=== PATIENT | male | born 1975 | race Caucasian/White ===

== ENCOUNTER 2016-10-15 13:04 | Emergency (ER) | payer OTHER, SELFPAY ==
[2016-10-15] MEDS ORDERED: TORAdol 30 mg Injection IM ONE (13:40)
[2016-10-15] MEDS ORDERED: DILAUDID 2 MG INJECTION IM ONE (13:41)
[2016-10-15] MEDS ORDERED: Phenergan 25 MG INJ IM ONE (13:41)
[2016-10-15] MEDS ORDERED: TORAdol 30 mg Injection ONE (13:44)
[2016-10-15] MEDS ORDERED: Phenergan 25 MG INJ ONE (13:44)
[2016-10-15] MEDS ORDERED: DILAUDID 1 MG/ML INJECTION ONE (13:45)
--- NOTE | 2016-10-15 13:48 | ERPHSYRPT ---
- History of Present Illness Time Seen by Provider: 10/15/16 13:30 Source: patient Exam Limitations: clinical condition Patient Subjective Stated Complaint: LEFT HIP PAIN. - PT TRIPPED AND FELL AT WORK ON FRIDAY, THEN STEPPED IN A DEEP HOLE THE SAME DAY. Triage Nursing Assessment: ALERT X 3, RESP NONLABORED/EASY, PT CAN BEARLY TRASNFER FROM WHEELCHAIR TO BED. PT CAN NOT LIFT LEFT LEG UP NOR EXTEND LEFT LEG WITHOUT PAIN. Physician History: PATIENT FELL AT WORK 3 DAYS AGO, AFTER STEPPING INTO HOLE LANDING ONTO LEFT HIP , HAS SEVERE PAIN, UNABLE TO BEAR WEIGHT. DENIES HEAD, NECK OR BACK INJURY OR PAIN. Timing/Duration: day(s) Occured at: work Context: direct blow Quality: throbbing Hip Pain Location: hip (L) Severity of Pain-Max: severe Severity of Pain-Current: severe Modifying Factors: Improves With: movement Symptoms prior to fall: none Associated Symptoms: trouble walking Allergies/Adverse Reactions: tramadol Allergy (Verified 10/15/16 13:42) HIVES/RASH Home Medications: No Home Meds 1 [facility] UD 03/26/15 [History] Hx Tetanus, Diphtheria Vaccination/Date Given: Yes Hx Influenza Vaccination/Date Given: No Hx Pneumococcal Vaccination/Date Given: No Immunizations Up to Date: Yes - Review of Systems Constitutional: No Fever, No Chills Eyes: No Symptoms Ears, Nose, & Throat: No Symptoms Respiratory: No Symptoms, No Cough, No Dyspnea Cardiac: No Symptoms, No Chest Pain, No Edema, No Syncope Abdominal/Gastrointestinal: No Symptoms, No Abdominal Pain, No Nausea, No Vomiting, No Diarrhea Genitourinary Symptoms: No Symptoms, No Dysuria Musculoskeletal: Injury, No Back Pain, No Neck Pain Skin: No Rash Neurological: No Symptoms, No Dizziness, No Focal Weakness, No Sensory Changes Psychological: No Symptoms Endocrine: No Symptoms All Other Systems: Reviewed and Negative - Past Medical History Pertinent Past Medical History: Yes Neurological History: No Pertinent History ENT History: No Pertinent History Cardiac History: High Cholesterol Respiratory History: Asthma, COPD, Emphysema, Pneumonia Endocrine Medical History: No Pertinent History Musculoskeletal History: No Pertinent History GI Medical History: No Pertinent History, Other History: No Pertinent History Psycho-Social History: No Pertinent History Male Reproductive Disorders: No Pertinent History Other Medical History: alpha one blood disorder - Past Surgical History Past Surgical History: Yes Neuro Surgical History: No Pertinent History Cardiac: No Pertinent History Respiratory: No Pertinent History Gastrointestinal: Hernia Repair Genitourinary: No Pertinent History Musculoskeletal: Orthopedic Surgery Male Surgical History: No Pertinent History Other Surgical History: lt elbow, rt elbow,lt knee ,tonsils out lt finger,port placed - Social History Smoking Status: Never smoker Exposure to second hand smoke: No Drug Use: none Patient Lives Alone: No - Nursing Vital Signs Nursing Vital Signs: Initial Vital Signs Temperature 97.6 F Temperature Source Oral Pulse Rate 58 Respiratory Rate 18 Blood Pressure [Right Arm] 108/51 Pain Intensity 8 - Physical Exam General Appearance: no apparent distress, alert Eye Exam: PERRL/EOMI Ears, Nose, Throat Exam: normal ENT inspection, moist mucous membranes Neck Exam: normal inspection, non-tender, supple Respiratory Exam: normal breath sounds, lungs clear, No chest tenderness, No respiratory distress Cardiovascular Exam: regular rate/rhythm, No edema Gastrointestinal Exam: soft, No tenderness, No distention, No guarding Back Exam: normal inspection, normal range of motion, other (MARKED TENDERNESS LEFT SACRO ILIAC JOINT,), No vertebral tenderness Extremity Exam: limited range of motion (LEFT HIP WITH TENDERNESS OVER LEFT GROIN, NO GREATER TROCHANTER TENDERNESS, SWELLING OR ECCHYMOSIS, LEFT POPLITEAL AND PEDIS PULSES 2+) Peripheral Pulses: carotid (R): 2+, carotid (L): 2+, femoral (R): 2+, femoral (L ): 2+, dorsalis-pedis (R): 2+, dorsalis-pedis (L): 2+ Neurologic Exam: alert, oriented x 3, cooperative, mica inspector II-XII nml as tested, sensation nml, No motor deficits Skin Exam: normal color, warm, dry, No rash SpO2 Interpretation: normal SpO2: 94 Oxygen Delivery: Room Air - Radiology Exams Left Hip X-ray Interpretation: Discussed w/ radiologist, No Fracture (NO DISLOCATION) Pelvis X-ray Interpretation: Discussed w/ radiologist, No Fracture Ordered Tests: Active Orders 24 hr Category Date Time Status Crutches STAT Care 10/15/16 15:53 Active HIP UNI (2V) INCL PEL IF DONE Stat Exams 10/15/16 13:42 Completed Medication Summary Discontinued Medications Generic Name Dose Route Start Last Admin Trade Name Freq PRN Reason Stop Dose Admin Hydromorphone HCl 2 mg 10/15/16 13:41 10/15/16 13:48 Dilaudid 2 Mg Injection IM 10/15/16 13:42 2 mg STAT ONE Administration Hydromorphone HCl Confirm 10/15/16 13:45 Dilaudid 1 Mg/Ml Injection Administered 10/15/16 13:46 Dose 2 mg .ROUTE .STK-MED ONE Ketorolac Tromethamine 60 mg 10/15/16 13:40 10/15/16 13:48 Toradol 30 Mg Injection IM 10/15/16 13:41 60 mg STAT ONE Administration Ketorolac Tromethamine Confirm 10/15/16 13:44 Toradol 30 Mg Injection Administered 10/15/16 13:45 Dose 60 mg .ROUTE .STK-MED ONE Promethazine HCl 25 mg 10/15/16 13:41 10/15/16 13:48 Phenergan 25 Mg Inj IM 10/15/16 13:42 25 mg STAT ONE Administration Promethazine HCl Confirm 10/15/16 13:44 Phenergan 25 Mg Inj Administered 10/15/16 13:45 Dose 25 mg .ROUTE .STK-MED ONE - Progress Progress: improved Progress Note: 10/15/16 13:47 PATIENT ADMINISTERED TORADOL 60MG IM, DILAUDID 2MG/PHENERGAN 25MG IM Counseled pt/family regarding: diagnosis, need for follow-up, rad results - Departure Time of Disposition: 16:10 Departure Disposition: Home Clinical Impression: RIGHT HIP CONTUSION/STRAIN Condition: Stable Critical Care Time: No Additional Instructions: AMBULATE USING WALKER OR CRUTCHES NONWEIGHT BEARING LEFT LEG FOR 5 DAYS. ALTERNATE MOTRIN 600MG EVERY OTHER 4 HOURS WITH NORCO 10/325 NEEDED FOR PAIN. CONSULT YOUR FAMILY PHYSICIAN TOMORROW FOR EVALUATION. Prescriptions: Hydrocodone/APAP 10/325 mg [[place] 10/325 MG Tablet] 1 tab PO Q4H PRN PRN # 15 tablet PRN Reason: Pain Ibuprofen 600 mg PO Q6H PRN PRN #15 tablet PRN Reason: Pain
--- NOTE | 2016-10-15 15:15 | XRAY ---
Indication: Pain following fall. Comparison: None 2 views of the left hip obtained. No bony, articular, or soft tissue abnormalities.
[2016-10-15 15:56] VITALS: BP 108/51; PULSE 58
[2016-10-15 16:01] VITALS: O2SAT 94
[2016-10-17] MEDS ORDERED: BENADRYL 50 MG/ML IV STA (20:29)
[2016-10-17] MEDS ORDERED: Pepcid 20 MG VIAL IV ONE (20:30)
[2016-10-17] MEDS ORDERED: solu-MEDROL 125 MG IV ONE (20:31)
== END 2016-10-15 16:15 ==
LOC: ED 13:04
DX: S70.01XA Contusion of right hip, initial encounter (principal); S73.101A Unspecified sprain of right hip, initial encounter; W01.0XXA Fall on same level from slipping, tripping and stumbling without subsequent striking against object, initial encounter; Y92.89 Other specified places as the place of occurrence of the external cause; Y99.0 Civilian activity done for income or pay
CPT/HCPCS: 73502; 96372; 99283; J1170; J1885; J2550

== ENCOUNTER 2023-03-08 17:21 | Observation (INO) | payer OTHER ==
[2023-03-08] MEDS ORDERED: solu-MEDROL 125 MG, Sterile H2O 10 ml 2 ML IV ONE ×2 (17:30)
[2023-03-08] MEDS ORDERED: Ativan 2 MG/1 ML VIAL IV ONE (17:30)
[2023-03-08] MEDS ORDERED: MORPHINE SULFATE 4 MG INJ IV ONE (17:30)
[2023-03-08] MEDS ORDERED: PULMICORT 0.5 MG/2 ML RESPULES IH ONE ×2 (17:35→18:30)
[2023-03-08] MEDS ORDERED: TYLENOL EXTRA STRENGTH 500 MG PO STA (17:49)
--- NOTE | 2023-03-08 17:49 | ERPHSYRPT ---
- History of Present Illness Time Seen by Provider: 03/08/23 17:47 Source: patient, family Exam Limitations: no limitations Patient Subjective Stated Complaint: C/O SOB that started yesterday. States SOB just keeps becoming worse and now it hurts to breath. Triage Nursing Assessment: Patient brought back to ER by W/C. He is alert and oriented. SOB is noted. Skin tone normal. RT called to eval patient. Right lung clear. 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 Physician History: C/O SOB that started yesterday. States SOB just keeps becoming worse and now it hurts to breath. Timing/Duration: yesterday Activities at Onset: activity Severity of Dyspnea-Max: moderate Severity of Dyspnea-Current: moderate Possible Cause: frequent episodes Associated Symptoms: anxiety, painful breathing, No dizziness, No muscle spasms feet, No muscle spasms hands, No productive cough Allergies/Adverse Reactions: morphine Allergy (Verified 03/08/23 17:23) tramadol Allergy (Verified 03/08/23 17:23) HIVES/RASH Hx Tetanus, Diphtheria Vaccination/Date Given: Yes Hx Influenza Vaccination/Date Given: No Hx Pneumococcal Vaccination/Date Given: No Immunizations Up to Date: Yes Travel Risk - International Travel Have you traveled outside of the country in past 3 weeks: No - Coronavirus Screening Are you exhibiting any of the following symptoms?: Yes Symptoms: Shortness of Breath Close contact with a COVID-19 positive Pt in past 14-21 Days: No - Vaccine Status Have you recieved a Covid-19 vaccination: Yes [employer]: [employer] - Review of Systems Constitutional: Weakness, No Fever, No Chills Eyes: No Symptoms Ears, Nose, & Throat: No Symptoms Respiratory: Dyspnea, Dyspnea on Exertion (COLLIER), No Cough Cardiac: Orthopnea, PND, No Chest Pain, No Edema, No Syncope Abdominal/Gastrointestinal: No Abdominal Pain, No Nausea, No Vomiting, No Matilde rrhea Genitourinary Symptoms: No Dysuria Musculoskeletal: No Back Pain, No Neck Pain Skin: No Rash Neurological: No Dizziness, No Focal Weakness, No Sensory Changes Psychological: No Symptoms Endocrine: No Symptoms All Other Systems: Reviewed and Negative - Past Medical History Pertinent Past Medical History: Yes Neurological History: No Pertinent History ENT History: No Pertinent History Cardiac History: High Cholesterol Respiratory History: Asthma, COPD, Emphysema, Pneumonia Endocrine Medical History: No Pertinent History Musculoskeletal History: No Pertinent History GI Medical History: No Pertinent History, Other History: No Pertinent History Psycho-Social History: No Pertinent History Male Reproductive Disorders: No Pertinent History Other Medical History: alpha one blood disorder, 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 - Past Surgical History Past Surgical History: Yes Neuro Surgical History: No Pertinent History Cardiac: No Pertinent History Respiratory: No Pertinent History Gastrointestinal: Hernia Repair Genitourinary: No Pertinent History Musculoskeletal: Orthopedic Surgery Male Surgical History: No Pertinent History Other Surgical History: lt elbow, rt elbow,lt knee ,tonsils out lt finger,port placed - Social History Smoking Status: Never smoker Exposure to second hand smoke: No Drug Use: none Patient Lives Alone: No - Nursing Vital Signs Nursing Vital Signs: Initial Vital Signs Temperature 98.8 F 03/08/23 17:24 Pulse Rate 95 H 03/08/23 17:24 Respiratory Rate 20 03/08/23 17:24 Blood Pressure 125/77 03/08/23 17:24 O2 Sat by Pulse Oximetry 95 03/08/23 17:24 Pain Scale Pain Intensity 10 - Physical Exam General Appearance: no apparent distress, alert Eye Exam: PERRL/EOMI Neck Exam: normal inspection, supple Respiratory Exam: normal breath sounds, diminished breath sounds (right lower lung), crackles/rales, rhonchi Cardiovascular/Chest Exam: normal heart sounds, regular rate/rhythm Abdominal/Gastrointestinal Exam: soft, No tenderness, No distention, No mass Extremity Exam: non-tender, normal range of motion, normal inspection, no calf tenderness, no pedal edema Neurologic Exam: alert, oriented x 3, cooperative, bus washer II-XII nml as tested, sensation nml, No motor deficits Skin Exam: normal color, warm, No dry SpO2 Interpretation: normal SpO2: 95 O2 Delivery: Room Air - Course Nursing assessment & vital signs reviewed: Yes EKG Interpreted by Me: Sinus Rhythm - Radiology Exams Chest X-ray Interpretation: Reviewed by me, Infiltrates (right lower lobes) Ordered Tests: Active Orders 24 hr Category Date Time Status Primary Therapist STAT Care 03/08/23 17:31 Active EKG-ER Only STAT Care 03/08/23 17:30 Active Oxygen-ED Only Nasal Cannula 2 lpm Care 03/08/23 17:30 Active CHEST 1 VIEW (PORTABLE) Stat Exams 03/08/23 17:32 Taken ARTERIAL BLOOD GASES Stat Lab 03/08/23 17:30 Ordered CBC W DIFF Stat Lab 03/08/23 17:48 Completed CMP Stat Lab 03/08/23 17:48 Received D-DIMER QUANTITATIVE Stat Lab 03/08/23 17:48 Received MAGNESIUM Stat Lab 03/08/23 17:48 Received NT PRO BNPII Stat Lab 03/08/23 17:48 Received PROTIME WITH INR Stat Lab 03/08/23 17:48 Received TROPONIN Stat Lab 03/08/23 17:48 Received Medication Summary Generic Name Dose Route Start Last Admin Trade Name Angélica PRN Reason Stop Dose Admin Hydromorphone HCl 1 mg 03/08/23 18:11 Hydromorphone 1 Mg/1ml Inj IV 03/08/23 18:12 STAT ONE Sodium Chloride 1,000 mls @ 100 mls/hr 03/08/23 17:30 Sodium Chloride 0.9% 1000 Ml IV 04/07/23 17:29 .Q10H ROBE Ceftriaxone Sodium/Dextrose 1 g in 50 mls @ 100 mls/hr 03/08/23 18:01 Rocephin 1 Gm-D5w 50 Ml Bag IV 03/08/23 18:30 STAT STA Azithromycin 500 mg in 250 mls @ 250 mls/hr 03/08/23 18:01 Zithromax 500 Mg/ 250 Ml Nacl Premix IV 03/08/23 19:00 STAT STA Ketorolac Tromethamine 30 mg 03/08/23 18:11 Ketorolac Tromethamine 30 Mg/Ml Inj IV 03/08/23 18:12 STAT ONE Discontinued Medications Generic Name Dose Route Start Last Admin Trade Name Angélica PRN Reason Stop Dose Admin Acetaminophen 1,000 mg 03/08/23 17:49 Acetaminophen 500 Mg Tablet PO 03/08/23 17:50 STAT STA Budesonide Confirm 03/08/23 17:35 Budesonide 0.5 Mg/2 Ml Ampul.Neb. Administered 03/08/23 17:36 Dose 0.5 mg IH .STK-MED ONE Methylprednisolone Sodium 0 mg 03/08/23 17:30 Succinate 125 mg/ Sterile IV 03/08/23 17:31 Water 2 ml STAT ONE Ceftriaxone Sodium/Dextrose Confirm 03/08/23 18:05 Rocephin 1 Gm-D5w 50 Ml Bag Administered 03/08/23 18:06 Dose 1 g in 50 mls @ ud IV .STK-MED ONE Lorazepam 1 mg 03/08/23 17:30 Lorazepam 2 Mg/1 Ml 2 Mg Vial IV 03/08/23 17:31 STAT ONE Lorazepam Confirm 03/08/23 18:04 Lorazepam 2 Mg/1 Ml 2 Mg Vial Administered 03/08/23 18:05 Dose 2 mg .ROUTE .STK-MED ONE Methylprednisolone Sodium Succinate Confirm 03/08/23 18:05 Methylprednis Sod Succ 125 Mg/2 Ml Vial Administered 03/08/23 18:06 Dose 125 mg .ROUTE .STK-MED ONE Morphine Sulfate 4 mg 03/08/23 17:30 Morphine Sulfate 4 Mg/Ml Injection IV 03/08/23 17:31 STAT ONE Sterile Water Confirm 03/08/23 18:04 Water For Injection,Sterile 10 Ml Vial Administered 03/08/23 18:05 Dose 10 ml IJ .STK-MED ONE Lab/Rad Data: Laboratory Result Diagrams 03/08/23 17:48 Laboratory Results 03/08/23 Range/Units 17:48 WBC 6.9 (4.0-10.5) x10^3/uL RBC 4.98 (4.1-5.6) x10^6/uL Hgb 14.9 (12.5-18.0) g/dL Hct 45.6 (42-50) % MCV 91.6 (78-100) fL MCH 29.9 (26-32) pg MCHC 32.7 (32-36) g/dL RDW 12.0 (11.5-14.0) % Plt Count 194 (150-450) x10^3/uL MPV 9.9 (7.5-11.0) fL Gran % 71.8 H (36.0-66.0) % Immature Gran % (Auto) 0.9 H (0.00-0.4) % Nucleat RBC Rel Count 0.0 (0.00-0.1) % Eos # (Auto) 0.06 (0-0.5) x10^3/uL Immature Gran # (Auto) 0.06 H (0.00-0.03) x10^3u/L Absolute Lymphs (auto) 1.38 (1.0-4.6) x10^3/uL Absolute Monos (auto) 0.42 (0.0-1.3) x10^3/uL Absolute Nucleated RBC 0.00 (0.00-0.01) x10^3u/L Lymphocytes % 20.0 L (24.0-44.0) % Monocytes % 6.1 (0.0-12.0) % Eosinophils % 0.9 (0.00-5.0) % Basophils % 0.3 (0.0-0.4) % Absolute Granulocytes 4.97 (1.4-6.9) x10^3/uL Basophils # 0.02 (0-0.4) x10^3/uL - Progress Progress: re-examined, unchanged Air Movement: fair Blood Culture(s) Obtained: No Antibiotics given: Yes Discussed with Dr.: Other (Hospitalist, Dr Escalera) Will see patient in: hospital (observation) Medical Desision Making - Discussion of managment Care discussed with:: on-call "doc" Reviewed:: Test results, Need for additional workup Agreed on:: Treatment plan, need for follow-up, decision to admit, place in obs - Diagnostic Testing Diagnostic test were ordered, analyzed, and reviewed by me: Yes Radiological Interpretation: Reviewed by me - Risk of complications The pt has a mod risk of morbidity or mortality based on: Need for prescription drug management - Departure Departure Disposition: Observation Clinical Impression: Right lower lobe pneumonia Qualifiers: Pneumonia type: due to Pneumococcus Qualified Code(s): J13 - Pneumonia due to Streptococcus pneumoniae Condition: Fair Critical Care Time: Yes Critical Care Time(excluding separately billable procedures): Critical 30-74 mins Referrals: ANU OTT [Primary Care Provider] - Follow up/PCP as directed
[2023-03-08 17:52] LABS: Absolute Neutrophil Ct (ANC) 4.97 x10^3/uL (1.4-6.9); BASOPHIL % 0.3 % (0.0-0.4); Basophil (Absolute #) 0.02 x10^3/uL (0-0.4); Eosinophil % 0.9 % (0.00-5.0); Eosinophil (Absolute #) 0.06 x10^3/uL (0-0.5); Hematocrit 45.6 % (42-50); Hemoglobin 14.9 g/dL (12.5-18.0); IMMATURE GRAN # 0.06 x10^3u/L (0.00-0.03); IMMATURE GRAN % 0.9 % (0.00-0.4); Lymphocyte (Absolute #) 1.38 x10^3/uL (1.0-4.6); Mean Cell Volume 91.6 fL (78-100); Mean Corpuscular Hemoglobin 29.9 pg (26-32); Mean Corpuscular Hgb Concent. 32.7 g/dL (32-36); Mean Platelet Volume 9.9 fL (7.5-11.0); Monocyte (Absolute #) 0.42 x10^3/uL (0.0-1.3); Monocytes % 6.1 % (0.0-12.0); Neutrophil % 71.8 % (36.0-66.0); Platelet Count 194 x10^3/uL (150-450); Red Blood Count 4.98 x10^6/uL (4.1-5.6); White Blood Count 6.9 x10^3/uL (4.0-10.5)
[2023-03-08] MEDS ORDERED: Zithromax 500 MG/ 250 ML NaCl Premix 500 MG/250 ML IVPB IV STA (18:01)
[2023-03-08] MEDS ORDERED: ROCEPHIN 1 Gm-D5w 50 ml Bag** 1 G/50 ML IVPB IV STA (18:01)
[2023-03-08] MEDS ORDERED: Sterile H2O 10 ml IJ ONE ×2 (18:04→23:35)
[2023-03-08] MEDS ORDERED: Ativan 2 MG/1 ML VIAL ONE (18:04)
[2023-03-08] MEDS ORDERED: solu-MEDROL ONE ×2 (18:05→23:30)
[2023-03-08] MEDS ORDERED: ROCEPHIN 1 Gm-D5w 50 ml Bag** 1 G/50 ML IVPB IV ONE (18:05)
[2023-03-08] MEDS: Sodium Chloride 0.9% 1000 ML 1,000 ML IV SCH (18:06)
[2023-03-08] MEDS ORDERED: Hydromorphone 1 mg/ml Injection IV ONE ×3 (18:11→23:08)
[2023-03-08] MEDS ORDERED: TORAdol 30 mg Injection IV ONE (18:11)
[2023-03-08 18:17] LABS: D-DIMER QUANTITATIVE 0.29 mg/L (0.0-0.50); INR 0.9 (0.8-3.0); PROTIME 9.9 SECONDS (9.4-12.5)
[2023-03-08 18:19] LABS: ALBUMIN 4.2 g/dL (3.5-5.0); ALKALINE PHOSPHATASE 66 U/L (38-126); ANION GAP 13.8 MEQ/L (5-15); BLOOD UREA NITROGEN 9 mg/dL (9-20); CHLORIDE 100 mmol/L (98-107); Calcium 9.1 mg/dL (8.4-10.2); Carbon Dioxide 29 mmol/L (22-30); Creatinine 1 0.58 mg/dL (0.66-1.25); EST GLOMERULAR FILTRATION RATE > 60.0 ML/MIN; Glucose 194 mg/dL (74-106); MAGNESIUM 2.1 mg/dL (1.6-2.3); Potassium 4.7 mmol/L (3.5-5.1); SGOT/AST 45 U/L (17-59); SGPT/ALT 38 U/L (0-50); SODIUM 139 mmol/L (137-145); TROPONIN < 0.012 ng/mL (0.000-0.034); Total Protein 7.7 g/dL (6.3-8.2)
[2023-03-08] MEDS ORDERED: Hydromorphone 1 mg/ml Injection ONE ×2 (18:23→19:30)
[2023-03-08] MEDS ORDERED: TORAdol 30 mg Injection ONE (18:23)
[2023-03-08] MEDS ORDERED: Zithromax 500 MG/ 250 ML NaCl Premix 500 MG/250 ML IVPB IV ONE (18:41)
[2023-03-08 18:51] LABS: A-aADO2 66; ABG HEMOGLOBIN 15.3; ABG POTASSIUM 3.6 (3.5-5.1); ABG SITE RIGHT RADIAL; ALLEN TEST OK? YES; ARTERIAL BLD GAS O2 SATURATION 97.9 % (95-100); ARTERIAL BLOOD GAS BASE EXCESS 3.3 (-2.0-2.0); ARTERIAL BLOOD GAS FIO2 28 %; ARTERIAL BLOOD GAS PCO2 41 mmHg (35-45); ARTERIAL BLOOD GAS PO2 82 mmHg (75-100); ARTERIAL BLOOD GAS pH 7.44 (7.35-7.45); CARBOXYHEMOGLOBIN 1.8 % THgb (0.0-6.9); HCO3- 27.8 (22-28); HGB O2 SAT 95.2 g/dF (94-100); Methhemoglobin 1.1 % (1.4-1.5); paO2 pAO1 0.55
--- NOTE | 2023-03-08 20:57 | XRAY ---
Indication: Short of breath. Comparison: None Portable apical lordotic chest demonstrates mild right base infiltrate versus atelectasis. Remaining heart, left lung, and bony thorax unremarkable.
[2023-03-08] MEDS: DUONEB 0.5-3 MG/3 ml Neb IH SCH (23:19)
[2023-03-08] MEDS: Pepcid 20 MG VIAL IV SCH (23:32)
--- NOTE | 2023-03-08 23:56 | PCM.HP ---
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 Reports allergy to Sawdust requiring thoracic surgery and recurrent pneumonia since then. He reorts increasing right sided chest pain and SOB. Pain worse with coughing, not worse with deep breath. No sputum production or fever. Labs significant for WBC 6.9, plt 194, d-dimer 0.29, trop negative, BNP <20. ABG 7.44/. CXR w/ right basilar infiltrate. In the ED he received Tylenol, Budesonide, Dilaudid, Toradol Ativan, Solumedrol, Ceftriaxone and Azithromycin - Review of Systems Cardiac: Chest Pain All Other Systems: Reviewed and Negative Medications & Allergies Home Medications: Home Medication List Albuterol/Ipratropium 3ml Neb* [DUONEB 0.5-3 MG/3 ml Neb] 1 inhaler IH Q4- 6HPRN PRN 03/08/23 [History Confirmed 03/08/23] Bumetanide 1 mg [Bumex 1 mg] 2 mg PO DAILY 03/08/23 [History Confirmed 03/08/23] Empagliflozin [Jardiance] 25 mg PO DAILY 03/08/23 [History Confirmed 03/08/23] Potassium Chloride 40 meq PO BID 03/08/23 [History Confirmed 03/08/23] Semaglutide [Ozempic] 0.25 mg SQ WEEKLY 03/08/23 [History Confirmed 03/08/23] Allergies/Adverse Reactions: Allergies Allergy/AdvReac Type Severity Reaction Status Date / Time morphine Allergy Verified 03/08/23 17:23 tramadol Allergy Verified 03/08/23 17:23 - Past Medical History Past Medical History: Yes Neurological History: No Pertinent History ENT History: No Pertinent History Cardiac History: High Cholesterol Respiratory History: Asthma, COPD, Emphysema, Pneumonia Endocrine Medical History: Diabetes Type II Musculoskelatal History: Arthritis, Other GI Medical History: No Pertinent History, Other History: No Pertinent History Pyscho-Social History: Anxiety Male Reproductive Disorders: No Pertinent History Comment: alpha one blood disorder, 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 - Past Surgical History Past Surgical History: Yes Neuro Surgical History: No Pertinent History Cardiac History: No Pertinent History Respiratory Surgery: Other GI Surgical History: Hernia Repair Genitourinary Surgical Hx: No Pertinent History Musculskeletal Surgical Hx: Orthopedic Surgery Male Surgical History: No Pertinent History Other Surgical History: lt elbow, rt elbow,lt knee ,tonsils out lt finger,port placed, port removed - Social History Smoking Status: Never smoker Exposure to second hand smoke: No Alcohol: None, Rarely Drug Use: none - Physical Exam Vital Signs: Vital Signs - 24 hr Temp Pulse Resp BP BP Pulse Ox 03/08/23 23:19 86 24 96 03/08/23 22:09 97.8 F 90 24 159/84 94 L 03/08/23 21:00 91 H 24 132/77 94 L 03/08/23 20:30 92 H 20 142/84 96 03/08/23 20:00 88 17 153/97 03/08/23 19:30 90 18 168/89 94 L 03/08/23 19:00 93 H 26 H 151/98 03/08/23 18:30 89 19 138/84 03/08/23 18:22 90 20 138/84 95 03/08/23 18:14 95 03/08/23 17:38 90 22 95 03/08/23 17:24 98.8 F 95 H 20 125/77 95 Results - Labs Lab/Micro Results: Lab Results-Last 24 Hours 03/08/23 03/08/23 03/08/23 Range/Units 17:48 17:48 17:48 WBC 6.9 (4.0-10.5) x10^3/uL RBC 4.98 (4.1-5.6) x10^6/uL Hgb 14.9 (12.5-18.0) g/dL Hct 45.6 (42-50) % MCV 91.6 (78-100) fL MCH 29.9 (26-32) pg MCHC 32.7 (32-36) g/dL RDW 12.0 (11.5-14.0) % Plt Count 194 (150-450) x10^3/uL MPV 9.9 (7.5-11.0) fL Gran % 71.8 H (36.0-66.0) % Immature Gran % (Auto) 0.9 H (0.00-0.4) % Nucleat RBC Rel Count 0.0 (0.00-0.1) % Eos # (Auto) 0.06 (0-0.5) x10^3/uL Immature Gran # (Auto) 0.06 H (0.00-0.03) x10^3u/L Absolute Lymphs (auto) 1.38 (1.0-4.6) x10^3/uL Absolute Monos (auto) 0.42 (0.0-1.3) x10^3/uL Absolute Nucleated RBC 0.00 (0.00-0.01) x10^3u/L Lymphocytes % 20.0 L (24.0-44.0) % Monocytes % 6.1 (0.0-12.0) % Eosinophils % 0.9 (0.00-5.0) % Basophils % 0.3 (0.0-0.4) % Absolute Granulocytes 4.97 (1.4-6.9) x10^3/uL Basophils # 0.02 (0-0.4) x10^3/uL PT 9.9 (9.4-12.5) SECONDS INR 0.90 (0.8-3.0) D-Dimer 0.29 (0.0-0.50) mg/L Puncture Site pCO2 (35-45) mmHg pO2 (75-100) mmHg Base Excess (-2.0-2.0) O2 Saturation (94-100) g/dF ABG pH (7.35-7.45) ABG HCO3 (22-28) ABG O2 Sat (Measured) (95-100) % Олег Test A-a Gradient a/A Ratio Hemoglobin Carboxyhemoglobin (0.0-6.9) % THgb Methemoglobin (1.4-1.5) % Temperature C POC O2 Flow Rate % Sodium 139 (137-145) mmol/L Potassium 4.7 (3.5-5.1) mmol/L Chloride 100 (98-107) mmol/L Carbon Dioxide 29 (22-30) mmol/L Anion Gap 13.8 (5-15) MEQ/L BUN 9 (9-20) mg/dL Creatinine 0.58 L (0.66-1.25) mg/dL Estimated GFR > 60.0 ML/MIN Glucose 194 H (74-106) mg/dL Calcium 9.1 (8.4-10.2) mg/dL Magnesium 2.1 (1.6-2.3) mg/dL Total Bilirubin 0.70 (0.2-1.3) mg/dL AST 45 (17-59) U/L ALT 38 (0-50) U/L Alkaline Phosphatase 66 (38-126) U/L Troponin I < 0.012 (0.000-0.034) ng/mL NT-Pro-B Natriuret Pep (<300) pg/mL Serum Total Protein 7.7 (6.3-8.2) g/dL Albumin 4.2 (3.5-5.0) g/dL 03/08/23 03/08/23 Range/Units 17:48 18:47 WBC (4.0-10.5) x10^3/uL RBC (4.1-5.6) x10^6/uL Hgb (12.5-18.0) g/dL Hct (42-50) % MCV (78-100) fL MCH (26-32) pg MCHC (32-36) g/dL RDW (11.5-14.0) % Plt Count (150-450) x10^3/uL MPV (7.5-11.0) fL Gran % (36.0-66.0) % Immature Gran % (Auto) (0.00-0.4) % Nucleat RBC Rel Count (0.00-0.1) % Eos # (Auto) (0-0.5) x10^3/uL Immature Gran # (Auto) (0.00-0.03) x10^3u/L Absolute Lymphs (auto) (1.0-4.6) x10^3/uL Absolute Monos (auto) (0.0-1.3) x10^3/uL Absolute Nucleated RBC (0.00-0.01) x10^3u/L Lymphocytes % (24.0-44.0) % Monocytes % (0.0-12.0) % Eosinophils % (0.00-5.0) % Basophils % (0.0-0.4) % Absolute Granulocytes (1.4-6.9) x10^3/uL Basophils # (0-0.4) x10^3/uL PT (9.4-12.5) SECONDS INR (0.8-3.0) D-Dimer (0.0-0.50) mg/L Puncture Site RIGHT RADIAL pCO2 41 (35-45) mmHg pO2 82 (75-100) mmHg Base Excess 3.3 H (-2.0-2.0) O2 Saturation 95.2 (94-100) g/dF ABG pH 7.44 (7.35-7.45) ABG HCO3 27.8 (22-28) ABG O2 Sat (Measured) 97.9 (95-100) % Олег Test YES A-a Gradient 66 a/A Ratio 0.55 Hemoglobin 15.3 Carboxyhemoglobin 1.8 (0.0-6.9) % THgb Methemoglobin 1.1 L (1.4-1.5) % Temperature 37.0 C POC O2 Flow Rate 28 % Sodium (137-145) mmol/L Potassium 3.6 (3.5-5.1) mmol/L Chloride (98-107) mmol/L Carbon Dioxide (22-30) mmol/L Anion Gap (5-15) MEQ/L BUN (9-20) mg/dL Creatinine (0.66-1.25) mg/dL Estimated GFR ML/MIN Glucose (74-106) mg/dL Calcium (8.4-10.2) mg/dL Magnesium (1.6-2.3) mg/dL Total Bilirubin (0.2-1.3) mg/dL AST (17-59) U/L ALT (0-50) U/L Alkaline Phosphatase (38-126) U/L Troponin I (0.000-0.034) ng/mL NT-Pro-B Natriuret Pep < 20.0 (<300) pg/mL Serum Total Protein (6.3-8.2) g/dL Albumin (3.5-5.0) g/dL - Radiology Impressions Radiology Exams & Impressions: Radiology Procedures Category Date Time Status CHEST 1 VIEW (PORTABLE) Stat Exams 03/08/23 17:32 Completed - Other Procedures and Tests Respiratory Therapy 03/08/23 18:31 Respiratory Therapy Assessment DAILY 03/08/23 22:17 Oxygen Nasal Cannula 2 lpm 03/08/23 23:47 BiPap/CPAP ROUTINE Assessment/Plan (1) Right lower lobe pneumonia Current Visit: Yes Status: Acute Qualifiers: Pneumonia type: due to Pneumococcus Qualified Code(s): J13 - Pneumonia due to Streptococcus pneumoniae Assessment & Plan: PHYSICAL EXAM: Gen: Alert and oriented, NAD Eyes: PERRL ENT: MMM CV: S1S2 Pulm: Scatter wheezing, diminished Abd: Soft/nt/nd/obese Extrem: No c/c/e Skin: Dry and intact ASSESSMENT #Pneumonia #Right sided chest pain, likely pleurisy #COPD exacerbation #Morbid obesity #CASSIA on NIV #DM PLAN: -Ceftriaxone, Azithromycin -Toradol schedule x4 doses and PRN Dilaudid -CT chest if persistent chest pain -Solumedrol -Duonebs -Continue NIV -SSI PPX: Lovenox Entire encounter performed via telemdicine Patient requested 2mg Dilaudid PRN and addition of anxiety medication. Explained in setting of comorbidities he is at high risk for complications at higher doses of opioids and or mixing benzos with opioids. Code(s): J18.9 - PNEUMONIA, UNSPECIFIED ORGANISM Telemedicine Encounter - Telemedicine Encounter Telemedicine Encounter: The entirety of this encounter was performed via Telemedicine"
[2023-03-09] MEDS ORDERED: solu-MEDROL 60 MG, Sterile H2O 10 ml 2 ML IV SCH ×2
[2023-03-09] MEDS: TORAdol 30 mg Injection IV SCH ×4 (00:37→18:09)
[2023-03-09] MEDS: Hydromorphone 1 mg/ml Injection IV PRN ×6 (03:02→23:56)
[2023-03-09] MEDS: DUONEB 0.5-3 MG/3 ml Neb IH SCH ×7 (03:20→22:33)
[2023-03-09] MEDS: Sodium Chloride 0.9% 1000 ML 1,000 ML IV SCH (05:36)
[2023-03-09 07:03] LABS: Hematocrit 51.2 % (42-50); Mean Cell Volume 94.3 fL (78-100); Mean Corpuscular Hemoglobin 29.5 pg (26-32); Mean Corpuscular Hgb Concent. 31.3 g/dL (32-36); Platelet Count 148 x10^3/uL (150-450); Red Blood Count 5.43 x10^6/uL (4.1-5.6); Red Cell Distribution Width 11.9 % (11.5-14.0); White Blood Count 8.8 x10^3/uL (4.0-10.5)
[2023-03-09 07:16] LABS: ANION GAP 18.1 MEQ/L (5-15); BLOOD UREA NITROGEN 12 mg/dL (9-20); CHLORIDE 102 mmol/L (98-107); Calcium 9.3 mg/dL (8.4-10.2); Carbon Dioxide 21 mmol/L (22-30); Creatinine 1 0.55 mg/dL (0.66-1.25); EST GLOMERULAR FILTRATION RATE > 60.0 ML/MIN; Glucose 287 mg/dL (74-106); Potassium 4.4 mmol/L (3.5-5.1); SODIUM 137 mmol/L (137-145)
[2023-03-09] MEDS ORDERED: SEMAGLUTIDE 0.25 MG/0.4 ML SQ SCH (08:30)
[2023-03-09] MEDS ORDERED: MEDICATION INTERVENTION MC SCH (08:30)
[2023-03-09] MEDS: ROCEPHIN 1 Gm-D5w 50 ml Bag** 1 G/50 ML IVPB IV SCH (08:33)
[2023-03-09] MEDS: HUMALOG SQ SCH ×4 (08:40→21:40)
[2023-03-09] MEDS: Zithromax 500 MG/ 250 ML NaCl Premix 500 MG/250 ML IVPB IV SCH (08:57)
[2023-03-09] MEDS ORDERED: NON-FORMULARY ITEM (Potassium Chloride [Potassium Chloride] 20 MEQ Tablet.Er) PO SCH (10:00)
[2023-03-09] MEDS: Klor Con PO SCH ×2 (11:20→21:36)
[2023-03-09] MEDS: BUMEX 1 MG PO SCH (11:20)
[2023-03-09] MEDS: JARDIANCE PO SCH (11:20)
[2023-03-09] MEDS: solu-MEDROL 60 MG, Sterile H2O 10 ml 2 ML IV SCH ×4 (11:23→21:38)
[2023-03-09] MEDS: Pepcid 20 MG VIAL IV SCH ×2 (11:25→21:37)
[2023-03-09] MEDS: ENOXAPARIN SODIUM SQ SCH (11:49)
--- NOTE | 2023-03-09 12:10 | PCM.NOTE ---
Date and Time: 03/09/23 1205 Subjective Assessment: Still reports persistent pleurisy. No new dyspnea or cough symptoms. Does not report fever and hemoptysis. The patient was seen and examined via telemedicine. The entirety of this encounter was performed via telemedicine. The patient consented to this telemedicine encounter. - Review of Systems Constitutional: Fatigue Eyes: No Symptoms Ears, Nose, & Throat: No Symptoms Respiratory: Other (pleurisy) Cardiac: No Symptoms Abdominal/Gastrointestinal: No Symptoms Genitourinary Symptoms: No Symptoms Musculoskeletal: No Symptoms Skin: No Symptoms Neurological: No Symptoms Psychological: No Symptoms Endocrine: No Symptoms Hematologic/Lymphatic: No Symptoms Immunological/Allergic: No Symptoms Objective Exam General Appearance: no apparent distress Neurologic Exam: alert, oriented x 3, cooperative, home hospice rn II-XII nml as tested, normal mood/affect, nml cerebellar function Skin Exam: normal color Eye Exam: PERRL, EOMI, eyes nml inspection Ears, Nose, Throat Exam: normal ENT inspection Neck Exam: normal inspection, non-tender, supple, full range of motion Respiratory Exam: normal breath sounds, lungs clear Cardiovascular Exam: regular rate/rhythm, normal heart sounds Gastrointestinal/Abdomen Exam: soft, normal bowel sounds Extremity Exam: normal inspection, normal range of motion Back Exam: normal range of motion OBJECTIVE DATA Vital Signs: Vital Signs - 24 hr Temp Pulse Resp BP BP Pulse Ox 03/09/23 12:00 96.5 F 82 20 150/78 97 03/09/23 11:42 82 18 95 03/09/23 07:09 96.1 F 75 18 153/76 93 L 03/09/23 07:00 91 H 16 92 L 03/09/23 04:27 96.3 F 80 20 136/76 93 L 03/09/23 04:00 98.8 F 86 22 138/84 90 L 03/09/23 03:21 86 22 90 L 03/08/23 23:19 86 24 96 03/08/23 22:09 97.8 F 90 24 159/84 94 L 03/08/23 21:00 91 H 24 132/77 94 L 03/08/23 20:30 92 H 20 142/84 96 03/08/23 20:00 88 17 153/97 03/08/23 19:30 90 18 168/89 94 L 03/08/23 19:00 93 H 26 H 151/98 03/08/23 18:30 89 19 138/84 03/08/23 18:22 90 20 138/84 95 03/08/23 18:14 95 03/08/23 17:38 90 22 95 03/08/23 17:24 98.8 F 95 H 20 125/77 95 Pain Assessment - Last Documented Pain Intensity 9 Pain Scale Used 0-10 Pain Scale Intake and Output: Intake & Output 03/07/23 03/08/23 03/09/23 03/10/23 11:59 11:59 11:59 11:59 Intake Total 2606 Output Total 1300 Balance 1306 Weight 148.9 kg Lab Results: Lab Results-Last 24 Hours 03/08/23 03/08/23 03/08/23 Range/Units 17:48 17:48 17:48 WBC 6.9 (4.0-10.5) x10^3/uL RBC 4.98 (4.1-5.6) x10^6/uL Hgb 14.9 (12.5-18.0) g/dL Hct 45.6 (42-50) % MCV 91.6 (78-100) fL MCH 29.9 (26-32) pg MCHC 32.7 (32-36) g/dL RDW 12.0 (11.5-14.0) % Plt Count 194 (150-450) x10^3/uL MPV 9.9 (7.5-11.0) fL Gran % 71.8 H (36.0-66.0) % Immature Gran % (Auto) 0.9 H (0.00-0.4) % Nucleat RBC Rel Count 0.0 (0.00-0.1) % Eos # (Auto) 0.06 (0-0.5) x10^3/uL Immature Gran # (Auto) 0.06 H (0.00-0.03) x10^3u/L Absolute Lymphs (auto) 1.38 (1.0-4.6) x10^3/uL Absolute Monos (auto) 0.42 (0.0-1.3) x10^3/uL Absolute Nucleated RBC 0.00 (0.00-0.01) x10^3u/L Lymphocytes % 20.0 L (24.0-44.0) % Monocytes % 6.1 (0.0-12.0) % Eosinophils % 0.9 (0.00-5.0) % Basophils % 0.3 (0.0-0.4) % Absolute Granulocytes 4.97 (1.4-6.9) x10^3/uL Basophils # 0.02 (0-0.4) x10^3/uL PT 9.9 (9.4-12.5) SECONDS INR 0.90 (0.8-3.0) D-Dimer 0.29 (0.0-0.50) mg/L Puncture Site pCO2 (35-45) mmHg pO2 (75-100) mmHg Base Excess (-2.0-2.0) O2 Saturation (94-100) g/dF ABG pH (7.35-7.45) ABG HCO3 (22-28) ABG O2 Sat (Measured) (95-100) % Олег Test A-a Gradient a/A Ratio Hemoglobin Carboxyhemoglobin (0.0-6.9) % THgb Methemoglobin (1.4-1.5) % Temperature C POC O2 Flow Rate % Sodium 139 (137-145) mmol/L Potassium 4.7 (3.5-5.1) mmol/L Chloride 100 (98-107) mmol/L Carbon Dioxide 29 (22-30) mmol/L Anion Gap 13.8 (5-15) MEQ/L BUN 9 (9-20) mg/dL Creatinine 0.58 L (0.66-1.25) mg/dL Estimated GFR > 60.0 ML/MIN Glucose 194 H (74-106) mg/dL POC Glucometer (74 to 106) mg/dL Hemoglobin A1c (4.5-6.0) % Calcium 9.1 (8.4-10.2) mg/dL Magnesium 2.1 (1.6-2.3) mg/dL Total Bilirubin 0.70 (0.2-1.3) mg/dL AST 45 (17-59) U/L ALT 38 (0-50) U/L Alkaline Phosphatase 66 (38-126) U/L Troponin I < 0.012 (0.000-0.034) ng/mL NT-Pro-B Natriuret Pep (<300) pg/mL Serum Total Protein 7.7 (6.3-8.2) g/dL Albumin 4.2 (3.5-5.0) g/dL 03/08/23 03/08/23 03/09/23 Range/Units 17:48 18:47 06:33 WBC (4.0-10.5) x10^3/uL RBC (4.1-5.6) x10^6/uL Hgb (12.5-18.0) g/dL Hct (42-50) % MCV (78-100) fL MCH (26-32) pg MCHC (32-36) g/dL RDW (11.5-14.0) % Plt Count (150-450) x10^3/uL MPV (7.5-11.0) fL Gran % (36.0-66.0) % Immature Gran % (Auto) (0.00-0.4) % Nucleat RBC Rel Count (0.00-0.1) % Eos # (Auto) (0-0.5) x10^3/uL Immature Gran # (Auto) (0.00-0.03) x10^3u/L Absolute Lymphs (auto) (1.0-4.6) x10^3/uL Absolute Monos (auto) (0.0-1.3) x10^3/uL Absolute Nucleated RBC (0.00-0.01) x10^3u/L Lymphocytes % (24.0-44.0) % Monocytes % (0.0-12.0) % Eosinophils % (0.00-5.0) % Basophils % (0.0-0.4) % Absolute Granulocytes (1.4-6.9) x10^3/uL Basophils # (0-0.4) x10^3/uL PT (9.4-12.5) SECONDS INR (0.8-3.0) D-Dimer (0.0-0.50) mg/L Puncture Site RIGHT RADIAL pCO2 41 (35-45) mmHg pO2 82 (75-100) mmHg Base Excess 3.3 H (-2.0-2.0) O2 Saturation 95.2 (94-100) g/dF ABG pH 7.44 (7.35-7.45) ABG HCO3 27.8 (22-28) ABG O2 Sat (Measured) 97.9 (95-100) % Олег Test YES A-a Gradient 66 a/A Ratio 0.55 Hemoglobin 15.3 Carboxyhemoglobin 1.8 (0.0-6.9) % THgb Methemoglobin 1.1 L (1.4-1.5) % Temperature 37.0 C POC O2 Flow Rate 28 % Sodium (137-145) mmol/L Potassium 3.6 (3.5-5.1) mmol/L Chloride (98-107) mmol/L Carbon Dioxide (22-30) mmol/L Anion Gap (5-15) MEQ/L BUN (9-20) mg/dL Creatinine (0.66-1.25) mg/dL Estimated GFR ML/MIN Glucose (74-106) mg/dL POC Glucometer 265 H (74 to 106) mg/dL Hemoglobin A1c (4.5-6.0) % Calcium (8.4-10.2) mg/dL Magnesium (1.6-2.3) mg/dL Total Bilirubin (0.2-1.3) mg/dL AST (17-59) U/L ALT (0-50) U/L Alkaline Phosphatase (38-126) U/L Troponin I (0.000-0.034) ng/mL NT-Pro-B Natriuret Pep < 20.0 (<300) pg/mL Serum Total Protein (6.3-8.2) g/dL Albumin (3.5-5.0) g/dL 03/09/23 03/09/23 03/09/23 Range/Units 07:02 07:02 07:02 WBC 8.8 (4.0-10.5) x10^3/uL RBC 5.43 (4.1-5.6) x10^6/uL Hgb 16.0 (12.5-18.0) g/dL Hct 51.2 H (42-50) % MCV 94.3 (78-100) fL MCH 29.5 (26-32) pg MCHC 31.3 L (32-36) g/dL RDW 11.9 (11.5-14.0) % Plt Count 148 L (150-450) x10^3/uL MPV 10.0 (7.5-11.0) fL Gran % (36.0-66.0) % Immature Gran % (Auto) (0.00-0.4) % Nucleat RBC Rel Count (0.00-0.1) % Eos # (Auto) (0-0.5) x10^3/uL Immature Gran # (Auto) (0.00-0.03) x10^3u/L Absolute Lymphs (auto) (1.0-4.6) x10^3/uL Absolute Monos (auto) (0.0-1.3) x10^3/uL Absolute Nucleated RBC (0.00-0.01) x10^3u/L Lymphocytes % (24.0-44.0) % Monocytes % (0.0-12.0) % Eosinophils % (0.00-5.0) % Basophils % (0.0-0.4) % Absolute Granulocytes (1.4-6.9) x10^3/uL Basophils # (0-0.4) x10^3/uL PT (9.4-12.5) SECONDS INR (0.8-3.0) D-Dimer (0.0-0.50) mg/L Puncture Site pCO2 (35-45) mmHg pO2 (75-100) mmHg Base Excess (-2.0-2.0) O2 Saturation (94-100) g/dF ABG pH (7.35-7.45) ABG HCO3 (22-28) ABG O2 Sat (Measured) (95-100) % Олег Test A-a Gradient a/A Ratio Hemoglobin Carboxyhemoglobin (0.0-6.9) % THgb Methemoglobin (1.4-1.5) % Temperature C POC O2 Flow Rate % Sodium 137 (137-145) mmol/L Potassium 4.4 (3.5-5.1) mmol/L Chloride 102 (98-107) mmol/L Carbon Dioxide 21 L (22-30) mmol/L Anion Gap 18.1 H (5-15) MEQ/L BUN 12 (9-20) mg/dL Creatinine 0.55 L (0.66-1.25) mg/dL Estimated GFR > 60.0 ML/MIN Glucose 287 H (74-106) mg/dL POC Glucometer (74 to 106) mg/dL Hemoglobin A1c 7.84 H (4.5-6.0) % Calcium 9.3 (8.4-10.2) mg/dL Magnesium (1.6-2.3) mg/dL Total Bilirubin (0.2-1.3) mg/dL AST (17-59) U/L ALT (0-50) U/L Alkaline Phosphatase (38-126) U/L Troponin I (0.000-0.034) ng/mL NT-Pro-B Natriuret Pep (<300) pg/mL Serum Total Protein (6.3-8.2) g/dL Albumin (3.5-5.0) g/dL 03/09/23 Range/Units 11:55 WBC (4.0-10.5) x10^3/uL RBC (4.1-5.6) x10^6/uL Hgb (12.5-18.0) g/dL Hct (42-50) % MCV (78-100) fL MCH (26-32) pg MCHC (32-36) g/dL RDW (11.5-14.0) % Plt Count (150-450) x10^3/uL MPV (7.5-11.0) fL Gran % (36.0-66.0) % Immature Gran % (Auto) (0.00-0.4) % Nucleat RBC Rel Count (0.00-0.1) % Eos # (Auto) (0-0.5) x10^3/uL Immature Gran # (Auto) (0.00-0.03) x10^3u/L Absolute Lymphs (auto) (1.0-4.6) x10^3/uL Absolute Monos (auto) (0.0-1.3) x10^3/uL Absolute Nucleated RBC (0.00-0.01) x10^3u/L Lymphocytes % (24.0-44.0) % Monocytes % (0.0-12.0) % Eosinophils % (0.00-5.0) % Basophils % (0.0-0.4) % Absolute Granulocytes (1.4-6.9) x10^3/uL Basophils # (0-0.4) x10^3/uL PT (9.4-12.5) SECONDS INR (0.8-3.0) D-Dimer (0.0-0.50) mg/L Puncture Site pCO2 (35-45) mmHg pO2 (75-100) mmHg Base Excess (-2.0-2.0) O2 Saturation (94-100) g/dF ABG pH (7.35-7.45) ABG HCO3 (22-28) ABG O2 Sat (Measured) (95-100) % Олег Test A-a Gradient a/A Ratio Hemoglobin Carboxyhemoglobin (0.0-6.9) % THgb Methemoglobin (1.4-1.5) % Temperature C POC O2 Flow Rate % Sodium (137-145) mmol/L Potassium (3.5-5.1) mmol/L Chloride (98-107) mmol/L Carbon Dioxide (22-30) mmol/L Anion Gap (5-15) MEQ/L BUN (9-20) mg/dL Creatinine (0.66-1.25) mg/dL Estimated GFR ML/MIN Glucose (74-106) mg/dL POC Glucometer 279 H (74 to 106) mg/dL Hemoglobin A1c (4.5-6.0) % Calcium (8.4-10.2) mg/dL Magnesium (1.6-2.3) mg/dL Total Bilirubin (0.2-1.3) mg/dL AST (17-59) U/L ALT (0-50) U/L Alkaline Phosphatase (38-126) U/L Troponin I (0.000-0.034) ng/mL NT-Pro-B Natriuret Pep (<300) pg/mL Serum Total Protein (6.3-8.2) g/dL Albumin (3.5-5.0) g/dL Radiology Exams: Radiology Procedures Category Date Time Status CHEST 1 VIEW (PORTABLE) Stat Exams 03/08/23 17:32 Completed CHEST WITH CONTRAST [CT] Stat Exams 03/09/23 10:47 Ordered Multi-Disciplinary Progress Notes: Multi-Disciplinary Progress Notes 03/08/23 18:31 Respiratory Note by Billie Alvarado Verbal order received from Dr. Naqvi for 0.5mg Budesonide nebulizer one time stat. Order was repeated back to verify order. Initialized on 03/08/23 18:31 - END OF NOTE Assessment/Plan (1) Right lower lobe pneumonia Current Visit: Yes Status: Acute Qualifiers: Pneumonia type: due to Pneumococcus Qualified Code(s): J13 - Pneumonia due to Streptococcus pneumoniae Assessment & Plan: Continue IV antibiotics. Code(s): J18.9 - PNEUMONIA, UNSPECIFIED ORGANISM (2) Pleurisy Current Visit: Yes Status: Acute Assessment & Plan: CTA chest pending. Code(s): R09.1 - PLEURISY (3) COPD exacerbation Current Visit: Yes Status: Acute Assessment & Plan: Continue nebulizers and steroids. Uses NIV at night. Code(s): J44.1 - CHRONIC OBSTRUCTIVE PULMONARY DISEASE W (ACUTE) EXACERBATION
[2023-03-09] MEDS ORDERED: Hydromorphone 1 mg/ml Injection IV ONE (20:28)
[2023-03-09] MEDS: TORAdol 30 mg Injection IV PRN (21:44)
[2023-03-10] MEDS: DUONEB 0.5-3 MG/3 ml Neb IH SCH ×4 (03:17→15:37)
[2023-03-10] MEDS: Hydromorphone 1 mg/ml Injection IV PRN ×4 (03:57→16:05)
[2023-03-10 05:33] LABS: Absolute Neutrophil Ct (ANC) 6.74 x10^3/uL (1.4-6.9); BASOPHIL % 0.1 % (0.0-0.4); Basophil (Absolute #) 0.01 x10^3/uL (0-0.4); Eosinophil (Absolute #) 0 x10^3/uL (0-0.5); Hematocrit 46.2 % (42-50); IMMATURE GRAN # 0.09 x10^3u/L (0.00-0.03); IMMATURE GRAN % 1.2 % (0.00-0.4); Lymphocyte (Absolute #) 0.46 x10^3/uL (1.0-4.6); Lymphocytes % 6.1 % (24.0-44.0); Mean Cell Volume 92.2 fL (78-100); Mean Corpuscular Hemoglobin 29.9 pg (26-32); Mean Corpuscular Hgb Concent. 32.5 g/dL (32-36); Mean Platelet Volume 10.4 fL (7.5-11.0); Monocyte (Absolute #) 0.21 x10^3/uL (0.0-1.3); Monocytes % 2.8 % (0.0-12.0); Neutrophil % 89.8 % (36.0-66.0); Platelet Count 176 x10^3/uL (150-450); Red Blood Count 5.01 x10^6/uL (4.1-5.6); Red Cell Distribution Width 12.2 % (11.5-14.0); White Blood Count 7.5 x10^3/uL (4.0-10.5)
[2023-03-10 05:46] LABS: ANION GAP 15.2 MEQ/L (5-15); BLOOD UREA NITROGEN 19 mg/dL (9-20); CHLORIDE 101 mmol/L (98-107); Calcium 9.3 mg/dL (8.4-10.2); Carbon Dioxide 24 mmol/L (22-30); Creatinine 1 0.69 mg/dL (0.66-1.25); EST GLOMERULAR FILTRATION RATE > 60.0 ML/MIN; Glucose 381 mg/dL (74-106); Potassium 4.6 mmol/L (3.5-5.1); SODIUM 135 mmol/L (137-145)
[2023-03-10 06:07] LABS: Slide Review 1 YES
[2023-03-10] MEDS: TORAdol 30 mg Injection IV PRN (07:39)
[2023-03-10] MEDS: HUMALOG SQ SCH ×2 (08:04→12:11)
--- NOTE | 2023-03-10 08:56 | XRAY ---
CLINICAL HISTORY:To rule out PE. COMPARISON:None; TECHNIQUES:Contiguous thin axial CT images of the chest were acquired with the administration of intravenous contrast. Coronal and sagittal reconstructions were obtained. Study Limitations: Faint contrast density within the pulmonary arteries (inappropriate dose/timing); FINDINGS: Normal caliber and contrast filling of the pulmonary artery and its main branches down to third-order branches, with no evident filling defects. The pulmonary parenchyma shows multiple patchy areas of ground glass veiling scattered throughout both lungs, along with a few subpleural atelecetatic bands. No definite consolidations, masses, nodules, or cavitary lesions. No free or encysted pleural effusion. Heart size is normal, yet left ventricular wall thickening was noted (19 mm). No pericardial effusion. The right hilar small calcified lymph node is seen with right pulmonary calcified nodule ... suggesting old granulomatous disease. No pathologically enlarged mediastinal lymph node was identified. There is no definite chest wall mass lesion. Scanned upper abdomen shows an enlarged liver with fatty infiltration, otherwise unremarkable. IMPRESSION: 1. Limited poor contrast study. 2. No radiological evidence of pulmonary embolism at current study. 3. LV wall hypertrophy ... suggesting hypertension. 4. Evidence of old granulomatous disease. 5. Enlarged liver with fatty infiltration. Electronically Signed by: Juan Aguilar MD. (03/09/2023 13:47:07 [employer]ER)
[2023-03-10] MEDS: BUMEX 1 MG PO SCH (09:58)
[2023-03-10] MEDS: Klor Con PO SCH (09:58)
[2023-03-10] MEDS: ENOXAPARIN SODIUM SQ SCH (09:58)
[2023-03-10] MEDS: Pepcid 20 MG VIAL IV SCH (09:58)
[2023-03-10] MEDS: solu-MEDROL 60 MG, Sterile H2O 10 ml 2 ML IV SCH ×2 (09:59)
[2023-03-10] MEDS: JARDIANCE PO SCH (09:59)
[2023-03-10] MEDS: ROCEPHIN 1 Gm-D5w 50 ml Bag** 1 G/50 ML IVPB IV SCH (10:00)
[2023-03-10] MEDS: Zithromax 500 MG/ 250 ML NaCl Premix 500 MG/250 ML IVPB IV SCH (10:00)
[2023-03-10 12:03] VITALS: O2SAT 94
[2023-03-10 15:57] VITALS: BP 148/81; PULSE 72
--- NOTE | 2023-03-10 16:02 | PCM.DS ---
Discharge Summary Date of Admission: 03/08/23 21:50 Date of Discharge: 03/10/2023 Admitting Physician: GREGORIO SIMS MD Primary Care Provider: ANU OTT Allergies Allergies morphine Allergy (Verified 03/08/23 17:23) tramadol Allergy (Verified 03/08/23 17:23) HIVES/RASH Hospital Summary - Hospital Course Hospital Course: Mr. Owens is a 47 y/o M with h/o morbid obesity, CASSIA on CPAP, emphysema on PRN oxygen at home, chronic knee pain, and DM2, who presented with progressive right-sided chest pain and dyspnea. Noted that pain was worse with any movement, coughing, or deep inspiration. Denies fever, productive cough, or sick contacts. On admission, initially treated for PNA and COPD exacerbation because of possible infiltrate on CXR. He was also given SoluMedrol and nebs. ABG showed CO2 retention. Eventually had CTA Chest that showed no PE, but also showed no pneumonia. Patient never had fever or leukocytosis. He remained on room air, and was able to walk to the bathroom without difficulty. His main complaint was the constant right-sided chest pain, worse with palpation or any movement. Said he has tried NSAIDs previously and has not had benefit. Decided to discontinue patient's antibiotics, and discharge home on 4 more days of prednisone 40 to cover for COPD. He has already arranged follow-up with his PCP on Friday to continue pain workup. Greater than 30 min spent arranging discharge. Patient seen via telemedicine encounter, to which patient consented. - Vitals & Intake/Output Vital Signs: Vital Signs Temperature 98.2 F 03/10/23 12:00 Pulse Rate 88 03/10/23 15:43 Respiratory Rate 18 03/10/23 15:43 Blood Pressure 132/79 03/10/23 12:00 O2 Sat by Pulse Oximetry 94 L 03/10/23 15:43 Intake & Output: Intake & Output 03/08/23 03/09/23 03/10/23 03/11/23 11:59 11:59 11:59 11:59 Intake Total 2606 2000 Output Total 1300 800 Balance 1306 1200 Weight 148.9 kg 148.9 kg - Lab Result Diagrams: 03/10/23 05:15 03/10/23 05:15 Lab Results-Last 24 Hrs: Lab Results-Last 24 Hours 03/09/23 03/09/23 03/10/23 Range/Units 16:40 21:20 05:15 WBC (4.0-10.5) x10^3/uL RBC (4.1-5.6) x10^6/uL Hgb (12.5-18.0) g/dL Hct (42-50) % MCV (78-100) fL MCH (26-32) pg MCHC (32-36) g/dL RDW (11.5-14.0) % Plt Count (150-450) x10^3/uL MPV (7.5-11.0) fL Gran % (36.0-66.0) % Immature Gran % (Auto) (0.00-0.4) % Nucleat RBC Rel Count (0.00-0.1) % Eos # (Auto) (0-0.5) x10^3/uL Immature Gran # (Auto) (0.00-0.03) x10^3u/L Absolute Lymphs (auto) (1.0-4.6) x10^3/uL Absolute Monos (auto) (0.0-1.3) x10^3/uL Absolute Nucleated RBC (0.00-0.01) x10^3u/L Lymphocytes % (24.0-44.0) % Monocytes % (0.0-12.0) % Eosinophils % (0.00-5.0) % Basophils % (0.0-0.4) % Absolute Granulocytes (1.4-6.9) x10^3/uL Basophils # (0-0.4) x10^3/uL Sodium 135 L (137-145) mmol/L Potassium 4.6 (3.5-5.1) mmol/L Chloride 101 (98-107) mmol/L Carbon Dioxide 24 (22-30) mmol/L Anion Gap 15.2 H (5-15) MEQ/L BUN 19 (9-20) mg/dL Creatinine 0.69 (0.66-1.25) mg/dL Estimated GFR > 60.0 ML/MIN Glucose 381 H (74-106) mg/dL POC Glucometer 400 H 307 H (74 to 106) mg/dL Calcium 9.3 (8.4-10.2) mg/dL Slides for Path Review 03/10/23 03/10/23 03/10/23 Range/Units 05:15 07:18 11:29 WBC 7.5 (4.0-10.5) x10^3/uL RBC 5.01 (4.1-5.6) x10^6/uL Hgb 15.0 (12.5-18.0) g/dL Hct 46.2 (42-50) % MCV 92.2 (78-100) fL MCH 29.9 (26-32) pg MCHC 32.5 (32-36) g/dL RDW 12.2 (11.5-14.0) % Plt Count 176 (150-450) x10^3/uL MPV 10.4 (7.5-11.0) fL Gran % 89.8 H (36.0-66.0) % Immature Gran % (Auto) 1.2 H (0.00-0.4) % Nucleat RBC Rel Count 0.0 (0.00-0.1) % Eos # (Auto) 0 (0-0.5) x10^3/uL Immature Gran # (Auto) 0.09 H (0.00-0.03) x10^3u/L Absolute Lymphs (auto) 0.46 L (1.0-4.6) x10^3/uL Absolute Monos (auto) 0.21 (0.0-1.3) x10^3/uL Absolute Nucleated RBC 0.00 (0.00-0.01) x10^3u/L Lymphocytes % 6.1 L (24.0-44.0) % Monocytes % 2.8 (0.0-12.0) % Eosinophils % 0.0 (0.00-5.0) % Basophils % 0.1 (0.0-0.4) % Absolute Granulocytes 6.74 (1.4-6.9) x10^3/uL Basophils # 0.01 (0-0.4) x10^3/uL Sodium (137-145) mmol/L Potassium (3.5-5.1) mmol/L Chloride (98-107) mmol/L Carbon Dioxide (22-30) mmol/L Anion Gap (5-15) MEQ/L BUN (9-20) mg/dL Creatinine (0.66-1.25) mg/dL Estimated GFR ML/MIN Glucose (74-106) mg/dL POC Glucometer 269 H 340 H (74 to 106) mg/dL Calcium (8.4-10.2) mg/dL Slides for Path Review YES Micro Results-Entire Visit: Accuchecks Date 03/10/23 Time 07:42 - Radiology Exams Ordered Rad Exams-Entire Visit: Radiology Procedures Category Date Time Status CHEST 1 VIEW (PORTABLE) Stat Exams 03/08/23 17:32 Completed CHEST WITH CONTRAST [CT] Stat Exams 03/09/23 10:47 Completed - Procedures and Test Procedures and Tests throughout Hospitalization: Therapy Orders & Screens 03/08/23 18:31 Respiratory Therapy Assessment DAILY Comment: 03/08/23 22:17 Oxygen Nasal Cannula 2 lpm Comment: 03/08/23 23:47 BiPap/CPAP ROUTINE Comment: Diagnosis: right lower lobe pneumonia Discharge Exam General Appearance: no apparent distress, alert Neurologic Exam: alert, oriented x 3, cooperative, normal mood/affect, sensation nml, No motor deficits Respiratory Exam: normal breath sounds, chest tenderness (to palpation), lungs clear, other (on room air), No respiratory distress Cardiovascular Exam: regular rate/rhythm, normal heart sounds Gastrointestinal/Abdomen Exam: soft, other (obese), No tenderness Skin Exam: normal color Final Diagnosis/Problem List - Final Discharge Diagnosis/Problem (1) Chest wall pain Current Visit: Yes Status: Acute Code(s): R07.89 - OTHER CHEST PAIN (2) COPD exacerbation Current Visit: Yes Status: Acute Code(s): J44.1 - CHRONIC OBSTRUCTIVE PULMONARY DISEASE W (ACUTE) EXACERBATION - Discharge Discharge Date: 03/10/23 Disposition: Home, Self-Care Condition: Good Prescriptions: New Albuterol/Ipratropium 3ml Neb* [DUONEB 0.5-3 MG/3 ml Neb] 3 ml IH Q4HRT Prednisone 20 mg [Deltasone 20 mg] 40 mg PO DAILY #8 tablet Continue Semaglutide [Ozempic] 0.25 mg SQ WEEKLY Empagliflozin [Jardiance] 25 mg PO DAILY Albuterol/Ipratropium 3ml Neb* [DUONEB 0.5-3 MG/3 ml Neb] 1 inhaler IH Q4- 6HPRN PRN PRN Reason: Shortness Of Breath Bumetanide 1 mg [Bumex 1 mg] 2 mg PO DAILY Potassium Chloride 40 meq PO BID Follow up with: ANU OTT [Primary Care Provider] -
== END 2023-03-10 17:00 | disposition home or self-care (01) ==
LOC: ED 17:21 → MED SURG 21:50
PROVIDERS: ADMIT Internal Medicine; ATTEND Family Medicine
DX: R07.89 Other chest pain (principal); J44.1 Chronic obstructive pulmonary disease with (acute) exacerbation; J18.9 Pneumonia, unspecified organism; E11.9 Type 2 diabetes mellitus without complications; E78.5 Hyperlipidemia, unspecified; R09.1 Pleurisy; Z79.899 Other long term (current) drug therapy; Z20.828 Contact with and (suspected) exposure to other viral communicable diseases
CPT/HCPCS: 36415; 36600; 71045; 71260; 80048; 80053; 82375; 82803; 82947; 83036; 83735; 83880; 84484; 85025; 85027; 85379; 85610; 93005; 93041; 94640; 94760; 94762; 96365; 96367; 96374; 96375; 96376; 99285; 99291; Q3014; 93268; J0456; J0696; J1170; J1650; J1817; J1885; J2060; J2930; Q9967; A9270-GY; G0378